=== PATIENT | male | born 1970 | race Caucasian/White ===

== ENCOUNTER 2017-05-26 15:17 | Emergency (ER) | payer MEDICARE, OTHER ==
[2017-05-26 15:37] VITALS: BP 131/67; PULSE 80; RESP 17; TEMP 97.1
[2017-05-26] MEDS ORDERED: AMOXICILLIN 500MG STARTER PACK 3 CAP BTL PO STA (16:03)
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
== END 2017-05-26 16:22 | disposition home or self-care (01) ==
LOC: EC 15:17
DX: K08.89 Other specified disorders of teeth and supporting structures (principal); F17.200 Nicotine dependence, unspecified, uncomplicated; Z88.8 Allergy status to other drugs, medicaments and biological substances
CPT/HCPCS: 99282

== ENCOUNTER 2017-06-30 10:05 | Emergency (ER) | payer MEDICARE, OTHER ==
[2017-06-30 10:13] VITALS: BP 147/72; PULSE 85; RESP 18; TEMP 98.3
[2017-06-30] MEDS ORDERED: AMOXICILLIN 875 MG TAB PO STA (10:31)
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
== END 2017-06-30 10:47 | disposition home or self-care (01) ==
LOC: EC 10:05
DX: T81.4XXA Infection following a procedure, initial encounter (principal); M27.3 Alveolitis of jaws; F17.200 Nicotine dependence, unspecified, uncomplicated; Z98.818 Other dental procedure status; Z86.14 Personal history of Methicillin resistant Staphylococcus aureus infection; Z79.899 Other long term (current) drug therapy; Z88.8 Allergy status to other drugs, medicaments and biological substances
CPT/HCPCS: 99282

== ENCOUNTER 2017-11-22 11:35 | Emergency (ER) | payer MEDICARE, OTHER ==
[2017-11-22 11:51] VITALS: BP 124/88; PULSE 98; RESP 18; TEMP 97.1
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
== END 2017-11-22 12:46 | disposition home or self-care (01) ==
LOC: EC 11:35
DX: S02.5XXA Fracture of tooth (traumatic), initial encounter for closed fracture (principal); K02.9 Dental caries, unspecified; R53.1 Weakness; R39.198 Other difficulties with micturition; F17.200 Nicotine dependence, unspecified, uncomplicated; Z86.14 Personal history of Methicillin resistant Staphylococcus aureus infection; Z79.891 Long term (current) use of opiate analgesic; Z88.8 Allergy status to other drugs, medicaments and biological substances; Z53.29 Procedure and treatment not carried out because of patient's decision for other reasons
CPT/HCPCS: 99283

== ENCOUNTER 2018-03-07 14:37 | Emergency (ER) | payer MEDICARE, OTHER ==
[2018-03-07 14:40] VITALS: BP 118/74; PULSE 68; RESP 18; TEMP 97.9
[2018-03-07] MEDS ORDERED: AMOXICILLIN 500MG STARTER PACK 3 CAP BTL PO STA (15:05)
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
== END 2018-03-07 15:14 | disposition home or self-care (01) ==
LOC: EC 14:37
DX: H61.21 Impacted cerumen, right ear (principal); H66.91 Otitis media, unspecified, right ear; F17.200 Nicotine dependence, unspecified, uncomplicated; Z86.14 Personal history of Methicillin resistant Staphylococcus aureus infection; Z79.891 Long term (current) use of opiate analgesic; Z88.8 Allergy status to other drugs, medicaments and biological substances
CPT/HCPCS: 69210; 99282

== ENCOUNTER 2025-03-26 19:26 | Emergency (ER) | payer MEDICARE, OTHER ==
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
[2025-03-26] MEDS ORDERED: SODIUM CHLORIDE 0.9% 1,000 ML IV SCH (19:30)
[2025-03-26 19:34] VITALS: PULSE 70; RESP 20
[2025-03-26 19:38] VITALS: BP 138/48; TEMP 97.9
== END 2025-03-26 19:46 | disposition left against medical advice (07) ==
LOC: EC 19:26
DX: Z53.21 Procedure and treatment not carried out due to patient leaving prior to being seen by health care provider (principal)
CPT/HCPCS: 99499